=== PATIENT | female | born 1940 | race Caucasian/White ===

== ENCOUNTER 2022-07-30 03:19 | Emergency (ER) | payer OTHER ==
[~2022-07-30] VITALS: Ht 147.3 cm; Wt 68.0 kg
[~2022-07-30 03:19] MED LIST: BLOOD PRESSURE PILL; INHALER; THYROID PILL; WATER PILL
[2022-07-30 03:24] VITALS: BP_SYST 157
--- NOTE | 2022-07-30 03:29 | NUR ---
PT FROM HOME BIBA WITH C/O ABD X 1 MONTH. LOCATED IN CENTER OF ABD NON-RADIATING. REPORTS DARK BROWN THROW UP, N/V AND WEAKNESS. LBM: LAST NIGHT REPORTS NO BLOOD IN THE EMISIS.
[2022-07-30] MEDS ORDERED: NACL 0.9% 1,000 ML IV ONE (03:30)
--- NOTE | 2022-07-30 03:50 | NUR ---
Patient to ER bed 08 to gown for evaluation. Side rails up. Report given to Kalyn DOYLE.
[2022-07-30 04:27] LABS: BASOPHILS # (AUTO) 0.1 K/uL (0.0-0.2); EOSINOPHILS # (AUTO) 0.3 K/uL (0.0-0.4); EOSINOPHILS % (AUTO) 2.1 % (0.0-4.0); HEMATOCRIT 38.5 % (36-48); HEMOGLOBIN 12.9 g/dL (12.0-16.0); LYMPHOCYTES # (AUTO) 1.3 K/uL (1.0-5.5); LYMPHOCYTES % (AUTO) 9.3 % (20.5-51.5); MEAN CORPUSCULAR HEMOGLOBIN 29 pg (27-31); MEAN CORPUSCULAR HGB CONC 33 % (32-36); MEAN CORPUSCULAR VOLUME 87 fL (79.0-98.0); MONOCYTES # (AUTO) 0.8 K/uL (0.0-1.0); MONOCYTES % (AUTO) 5.5 % (1.7-9.3); NEUTROPHILS # (AUTO) 11.5 K/uL (1.8-7.7); NEUTROPHILS % (AUTO) 82.1 % (40.0-70.0); PLATELET COUNT (AUTO) 263 K/uL (130-430); RED BLOOD CELL COUNT(AUTO) 4.42 MIL/uL (4.2-6.2); RED CELL DISTRIBUTION WIDTH 14.3 % (9.0-15.0)
[2022-07-30 04:36] LABS: ANION GAP 9 (5-15); CALCIUM 9.6 mg/dL (8.4-11.0); CHLORIDE 98 mmol/L (98-107); CREATININE 0.85 mg/dL (0.55-1.30); GLUCOSE 181 mg/dL (70-99); POTASSIUM 4.1 mmol/L (3.5-5.1); SODIUM SERUM 135 mmol/L (136-145); UREA NITROGEN, BLOOD 19 mg/dL (8-21)
[2022-07-30 04:42] LABS: ALANINE AMINOTRANSFERASE 22 U/L (12-78); ALBUMIN 3.1 g/dL (3.4-4.8); ASPARTATE AMINOTRANSFERASE 16 U/L (10-37); LIPASE 165 U/L (73-393)
[2022-07-30] MEDS ORDERED: MORPHINE 4 MG INJ. 4 MG/ML VIAL IVP ONE (05:00)
[2022-07-30] MEDS ORDERED: PROCHLORPERAZINE EDISYLATE 10 MG/2 ML VIAL IVP ONE (05:00)
--- NOTE | 2022-07-30 07:04 | NUR ---
PATIENT CAME IN EARLIER TODAY WITH A COMPLAIN OF ABDOMINAL PAIN, REFUSED TO TAKE ORDERED MEDICATION. V/S STABLE.ENDORSEDS
[2022-07-30] MEDS ORDERED: ONDANSETRON 4 MG ODT TAB PO ONE (07:15)
[2022-07-30] MEDS ORDERED: ACETAMINOPHEN 325 MG TABLET PO ONE (07:15)
[2022-07-30] MEDS ORDERED: VANCOMYCIN HCL 1,000 MG in NS 250 ML IV ONE (07:15)
--- NOTE | 2022-07-30 07:30 | NUR ---
RECEIVED PT FROM YANIRA GALARZA. PT IS HERE FOR C/O AB PAIN WHICH IS RESOLVED AT THIS TIME. DR. PHELPS AT BEDSIDE INFORMING PT OF POC. PT IS AAOX4, RESP E/U. ON R/A. NO COUGH OR SOB. ABDOMEN SOFT, NONTENDER, NONDISTENDED. DENIES N/V AT THIS TIME. PT EDUCATED TO REMAIN NPO AT THIS TIME. SKIN CDI, WARM, INTACT. IV CATH TO LAC 20G, INTACT, SITE WLN. SIDERAILS UP X2.
[2022-07-30] MEDS ORDERED: CIPR500T5 PO (09:00)
[2022-07-30] MEDS ORDERED: METR-154 PO (09:00)
[2022-07-30 09:14] LABS: BILIRUBIN,URINE NEGATIVE (NEGATIVE); BLOOD, URINE NEGATIVE (NEGATIVE); CLARITY/URINE CLEAR (CLEAR); COLOR,URINE YELLOW (YELLOW); GLUCOSE,URINE NEGATIVE (NEGATIVE); KETONES,URINE NEGATIVE (NEGATIVE); LEUKOCYTE ESTERASE ,URINE TRACE (NEGATIVE); NITRITE, URINE NEGATIVE (NEGATIVE); PH,URINE 5.5 (5.0-8.0); PROTEIN URINE NEGATIVE (NEGATIVE); UROBILINOGEN,URINE 0.2 (0.2-1.0)
[2022-07-30] MEDS ORDERED: VANCOMYCIN HCL 1000 MG/VIAL IV ONE (09:22)
--- NOTE | 2022-07-30 09:25 | NUR ---
levaquin ivpb initiated to be completed at 1130, vanco ivpb initiated to be completed at 1130.
[2022-07-30 10:57] VITALS: BP_SYST 142
--- NOTE | 2022-07-30 11:00 | NUR ---
Patient given written and verbal discharge instructions and verbalizes understanding. ER MD discussed with patient the results and treatment provided. Patient in stable condition. ID arm band removed. IV catheter removed intact and dressing applied, no active bleeding. Rx of ciprofloxacin, metronaidazole given. Patient educated on pain management and to follow up with PMD. Pain Scale 0/10. Opportunity for questions provided and answered. Medication side effect fact sheet provided.
[2022-07-30 11:28] LABS: BACTERIA,URINE FEW /HPF (None Seen); RBC,URINE 0-3 /HPF (0-3); WBC,URINE 0-3 /HPF (0-3)
== END 2022-07-30 11:00 | disposition home or self-care (01) ==
LOC: SED 03:19
DX: R10.13 Epigastric pain (principal); R11.2 Nausea with vomiting, unspecified; R42 Dizziness and giddiness; I10 Essential (primary) hypertension; Z88.0 Allergy status to penicillin; Z79.899 Other long term (current) drug therapy; Z20.822 Contact with and (suspected) exposure to COVID-19
CPT/HCPCS: 99285; 74176; 96365; 96366; 96375; 87426; 80053; 81000; 83690; 85025; 84484; 36415; 93005; 76376; 96368; J1956; J0780; J3370; J7050

== ENCOUNTER 2022-12-08 09:45 | Emergency (ER) | payer OTHER ==
[~2022-12-08] VITALS: Ht 147.3 cm; Wt 70.3 kg
[~2022-12-08 09:45] MED LIST changes: +CIPR500T5 PO; +METR-154 PO
[2022-12-08 09:52] VITALS: BP_SYST 160
[2022-12-08] MEDS ORDERED: ONDANSETRON 4 MG ODT TAB PO ONE (10:00)
[2022-12-08 10:14] LABS: BILIRUBIN,URINE NEGATIVE (NEGATIVE); CLARITY/URINE CLEAR (CLEAR); COLOR,URINE YELLOW (YELLOW); GLUCOSE,URINE NEGATIVE (NEGATIVE); KETONES,URINE NEGATIVE (NEGATIVE); LEUKOCYTE ESTERASE ,URINE 1+ (NEGATIVE); NITRITE, URINE NEGATIVE (NEGATIVE); PH,URINE 6.5 (5.0-8.0); PROTEIN URINE NEGATIVE (NEGATIVE)
[2022-12-08 10:18] LABS: BLOOD, URINE TRACE (NEGATIVE)
[2022-12-08 10:29] LABS: BASOPHILS # (AUTO) 0.1 K/uL (0.0-0.2); BASOPHILS % (AUTO) 0.6 % (0.0-2.0); EOSINOPHILS # (AUTO) 0.2 K/uL (0.0-0.4); EOSINOPHILS % (AUTO) 2.5 % (0.0-4.0); HEMATOCRIT 37.3 % (36-48); HEMOGLOBIN 12.7 g/dL (12.0-16.0); LYMPHOCYTES # (AUTO) 2.7 K/uL (1.0-5.5); LYMPHOCYTES % (AUTO) 29.1 % (20.5-51.5); MEAN CORPUSCULAR HEMOGLOBIN 31 pg (27-31); MEAN CORPUSCULAR HGB CONC 34 % (32-36); MEAN CORPUSCULAR VOLUME 91 fL (79.0-98.0); MONOCYTES # (AUTO) 0.7 K/uL (0.0-1.0); MONOCYTES % (AUTO) 7.1 % (1.7-9.3); NEUTROPHILS # (AUTO) 5.6 K/uL (1.8-7.7); NEUTROPHILS % (AUTO) 60.7 % (40.0-70.0); PLATELET COUNT (AUTO) 281 K/uL (130-430); RED CELL DISTRIBUTION WIDTH 15.5 % (9.0-15.0); WHITE BLOOD COUNT (AUTO) 9.2 K/uL (4.8-10.8)
[2022-12-08 10:36] LABS: ANION GAP 8 (5-15); CALCIUM 8.7 mg/dL (8.4-11.0); CHLORIDE 97 mmol/L (98-107); CREATININE 0.75 mg/dL (0.55-1.30); GLUCOSE 240 mg/dL (70-99); UREA NITROGEN, BLOOD 13 mg/dL (8-21)
[2022-12-08 10:39] LABS: BACTERIA,URINE None Seen /HPF (None Seen); MUCUS,URINE None Seen /LPF (None Seen); RBC,URINE 0-3 /HPF (0-3)
[2022-12-08 10:41] LABS: ALANINE AMINOTRANSFERASE 16 U/L (12-78); ALBUMIN 3.4 g/dL (3.4-4.8); AMYLASE 66 U/L (0-100); ASPARTATE AMINOTRANSFERASE 13 U/L (10-37); C-REACTIVE PROTEIN QUANT 0.8 mg/dL (0-0.5); LACTATE DEHYDROGENASE 142 U/L (81-234); LIPASE 92 U/L (73-393); TOTAL BILIRUBIN 0.7 mg/dL (0.0-1.0)
[2022-12-08 10:47] LABS: ACETONE, SERUM NEGATIVE (NEGATIVE)
[2022-12-08] MEDS ORDERED: OMEP20CA15 PO (12:08)
[2022-12-08] MEDS ORDERED: HYDR-3917 PO (12:08)
[2022-12-08] MEDS ORDERED: HYDROcodone/ACETAMIN 10-325 MG TAB PO ONE (12:30)
[2022-12-08 12:31] VITALS: BP_SYST 160
== END 2022-12-08 12:36 | disposition home or self-care (01) ==
LOC: SED 09:45
DX: R10.10 Upper abdominal pain, unspecified (principal); R11.2 Nausea with vomiting, unspecified; I10 Essential (primary) hypertension; Z88.0 Allergy status to penicillin; Z79.899 Other long term (current) drug therapy
CPT/HCPCS: 99284; 74176; 80053; 81000; 82009; 82150; 83615; 83690; 85025; 86140; 87086; 84484; 36415; 76376; 83605; Q0162

== ENCOUNTER 2022-12-20 19:02 | Emergency (ER) | payer OTHER ==
[~2022-12-20] VITALS: Ht 147.3 cm; Wt 68.0 kg
[~2022-12-20 19:02] MED LIST changes: +HYDR-3917 PO; +OMEP20CA15 PO
--- NOTE | 2022-12-20 19:17 | NUR ---
Patient to ER bed 7 to gown for evaluation. Side rails up.
--- NOTE | 2022-12-20 19:20 | NUR ---
Pt walked in c/o mid abdominal pain x today, +N/V x2. Pt states pain feels like the last time she had diverticulitis. Denies CP, SOB, denies sick contacts. PMH HTN, HLD, DM.
[2022-12-20 19:23] VITALS: BP_SYST 172
--- NOTE | 2022-12-20 19:25 | NUR ---
Dr. Birch at bedside for MSE
--- NOTE | 2022-12-20 19:32 | NUR ---
lab at bedside
--- NOTE | 2022-12-20 19:37 | NUR ---
pt c/o nausea, Dr. Eyal JACQUES for zofran
--- NOTE | 2022-12-20 19:40 | NUR ---
pt [facility] to CT
[2022-12-20] MEDS ORDERED: ONDANSETRON 4 MG ODT TAB PO ONE (19:45)
--- NOTE | 2022-12-20 19:49 | NUR ---
pt back from CT
[2022-12-20 19:53] LABS: BASOPHILS % (AUTO) 0.6 % (0.0-2.0); EOSINOPHILS # (AUTO) 0.1 K/uL (0.0-0.4); EOSINOPHILS % (AUTO) 1.2 % (0.0-4.0); HEMATOCRIT 34.3 % (36-48); HEMOGLOBIN 11.7 g/dL (12.0-16.0); LYMPHOCYTES # (AUTO) 1.7 K/uL (1.0-5.5); MEAN CORPUSCULAR HEMOGLOBIN 31 pg (27-31); MEAN CORPUSCULAR HGB CONC 34 % (32-36); MEAN CORPUSCULAR VOLUME 91 fL (79.0-98.0); MONOCYTES # (AUTO) 0.9 K/uL (0.0-1.0); MONOCYTES % (AUTO) 11.7 % (1.7-9.3); NEUTROPHILS # (AUTO) 5.2 K/uL (1.8-7.7); NEUTROPHILS % (AUTO) 65.5 % (40.0-70.0); PLATELET COUNT (AUTO) 240 K/uL (130-430); RED BLOOD CELL COUNT(AUTO) 3.78 MIL/uL (4.2-6.2); RED CELL DISTRIBUTION WIDTH 14.5 % (9.0-15.0)
[2022-12-20 20:13] LABS: ANION GAP 10 (5-15); CALCIUM 8.6 mg/dL (8.4-11.0); CHLORIDE 96 mmol/L (98-107); CREATININE 0.69 mg/dL (0.55-1.30); GLUCOSE 235 mg/dL (70-99); UREA NITROGEN, BLOOD 11 mg/dL (8-21)
[2022-12-20 20:15] LABS: ALANINE AMINOTRANSFERASE 19 U/L (12-78); AMYLASE 63 U/L (0-100); ASPARTATE AMINOTRANSFERASE 15 U/L (10-37); C-REACTIVE PROTEIN QUANT 1.8 mg/dL (0-0.5); LACTATE DEHYDROGENASE 131 U/L (81-234); LIPASE 69 U/L (73-393); TOTAL BILIRUBIN 0.8 mg/dL (0.0-1.0)
[2022-12-20 20:26] LABS: ACETONE, SERUM NEGATIVE (NEGATIVE)
[2022-12-20] MEDS ORDERED: KETOROLAC TROMETHAMINE 30 MG VIAL IM ONE (20:45)
[2022-12-20] MEDS ORDERED: IBUP-1969 PO (21:32)
[2022-12-20] MEDS ORDERED: HYDR-3917 PO (21:32)
[2022-12-20 22:05] VITALS: BP_SYST 172
[2022-12-20] MEDS ORDERED: KETO10TA2 PO (22:05)
--- NOTE | 2022-12-20 22:05 | NUR ---
Patient given written and verbal discharge instructions and verbalizes understanding. ER MD discussed with patient the results and treatment provided. Patient in stable condition. ID arm band removed. Rx of NORCO, MOTRIN given. Patient educated on pain management and to follow up with PMD. Pain Scale 0/10. Opportunity for questions provided and answered. Medication side effect fact sheet provided.
[2022-12-20 22:25] LABS: BILIRUBIN,URINE NEGATIVE (NEGATIVE); CLARITY/URINE CLEAR (CLEAR); COLOR,URINE YELLOW (YELLOW); GLUCOSE,URINE TRACE (NEGATIVE); KETONES,URINE NEGATIVE (NEGATIVE); LEUKOCYTE ESTERASE ,URINE TRACE (NEGATIVE); NITRITE, URINE NEGATIVE (NEGATIVE); PROTEIN URINE NEGATIVE (NEGATIVE); UROBILINOGEN,URINE 0.2 (0.2-1.0)
[2022-12-20 22:45] LABS: BLOOD, URINE TRACE (NEGATIVE)
[2022-12-21 00:09] LABS: BACTERIA,URINE FEW /HPF (None Seen); MUCUS,URINE None Seen /LPF (None Seen); RBC,URINE 0-3 /HPF (0-3)
== END 2022-12-20 22:05 | disposition home or self-care (01) ==
LOC: SED 19:02
DX: R10.33 Periumbilical pain (principal); R11.2 Nausea with vomiting, unspecified; R19.7 Diarrhea, unspecified; I10 Essential (primary) hypertension; Z88.0 Allergy status to penicillin; Z79.899 Other long term (current) drug therapy
CPT/HCPCS: 99285; 74176; 80053; 81000; 82009; 82150; 83615; 83690; 85025; 86140; 84484; 36415; 76376; 96372; 83605; Q0162; J1885

== ENCOUNTER 2024-04-05 02:19 | Inpatient (IN) | payer OTHER ==
[~2024-04-05] VITALS: Ht 152.4 cm; Wt 57.9 kg
[~2024-04-05 02:19] MED LIST changes: +IBUP-1969 PO; +KETO10TA2 PO
[2024-04-05 02:25] VITALS: BP_SYST 149; PULSE 75; RESP 19; TEMP 97.9; O2SAT 96
[2024-04-05] MEDS: ONDANSETRON HCL 4 MG/2 ML VIAL IVP ONE ×3 (02:53→15:52)
[2024-04-05] MEDS: MORPHINE 4 MG INJ. 4 MG/ML VIAL IVP ONE (02:58)
[2024-04-05] MEDS: NACL 0.9% 1,000 ML IV ONE (02:58)
[2024-04-05 03:06] LABS: BASOPHILS # (AUTO) 0.1 K/uL (0.0-0.2); BASOPHILS % (AUTO) 0.5 % (0.0-2.0); EOSINOPHILS # (AUTO) 0.5 K/uL (0.0-0.4); EOSINOPHILS % (AUTO) 3.8 % (0.0-4.0); HEMATOCRIT 39.2 % (36-48); HEMOGLOBIN 13.2 g/dL (12.0-16.0); LYMPHOCYTES # (AUTO) 5.2 K/uL (1.0-5.5); LYMPHOCYTES % (AUTO) 38.5 % (20.5-51.5); MEAN CORPUSCULAR HEMOGLOBIN 30 pg (27-31); MEAN CORPUSCULAR HGB CONC 34 % (32-36); MEAN CORPUSCULAR VOLUME 87 fL (79.0-98.0); MONOCYTES # (AUTO) 0.9 K/uL (0.0-1.0); MONOCYTES % (AUTO) 6.9 % (1.7-9.3); NEUTROPHILS # (AUTO) 6.7 K/uL (1.8-7.7); NEUTROPHILS % (AUTO) 50.3 % (40.0-70.0); PLATELET COUNT (AUTO) 279 K/uL (130-430); RED CELL DISTRIBUTION WIDTH 14.4 % (9.0-15.0); WHITE BLOOD COUNT (AUTO) 13.4 K/uL (4.8-10.8)
[2024-04-05 03:25] LABS: ALANINE AMINOTRANSFERASE 20 U/L (12-78); ALBUMIN 3.3 g/dL (3.4-4.8); ANION GAP 17 (5-15); ASPARTATE AMINOTRANSFERASE 14 U/L (10-37); CALCIUM 9.2 mg/dL (8.4-11.0); CARBON DIOXIDE 22 mmol/L (23-29); CHLORIDE 101 mmol/L (98-107); CREATININE 0.74 mg/dL (0.55-1.30); GLUCOSE 186 mg/dL (74-106); LIPASE 47 U/L (16-77); POTASSIUM 3.3 mmol/L (3.5-5.1); SODIUM SERUM 140 mmol/L (136-145); TOTAL BILIRUBIN 0.9 mg/dL (0.0-1.0); UREA NITROGEN, BLOOD 16 mg/dL (8-21)
[2024-04-05] MEDS ORDERED: iohexoL 350 mgI/mL, 100 ML INFUS..BTL IV ONE (03:37)
[2024-04-05 04:52] LABS: BILIRUBIN,URINE NEGATIVE (NEGATIVE); BLOOD, URINE NEGATIVE (NEGATIVE); COLOR,URINE YELLOW (YELLOW); GLUCOSE,URINE NEGATIVE (NEGATIVE); KETONES,URINE NEGATIVE (NEGATIVE); LEUKOCYTE ESTERASE ,URINE TRACE (NEGATIVE); NITRITE, URINE NEGATIVE (NEGATIVE); PROTEIN URINE NEGATIVE (NEGATIVE); UROBILINOGEN,URINE 0.2 (0.2-1.0)
[2024-04-05 04:58] LABS: CLARITY/URINE HAZY (CLEAR)
[2024-04-05 04:59] LABS: BACTERIA,URINE RARE /HPF (None Seen); RBC,URINE 0-3 /HPF (0-3)
[2024-04-05] MEDS ORDERED: ONDANSETRON HCL 4 MG/2 ML VIAL ONE ×2 (05:09→15:47)
[2024-04-05] MEDS: KETOROLAC TROMETHAMINE 30 MG VIAL IVP ONE (05:53)
[2024-04-05] MEDS: MORPHINE 2 MG/ML INJ. SYRINGE IVP ONE (07:07)
[2024-04-05] MEDS ORDERED: LEVO100T9 PO (08:35)
[2024-04-05] MEDS ORDERED: AMLO10TA88 PO (08:35)
[2024-04-05] MEDS ORDERED: VALS320T16 PO (08:35)
[2024-04-05] MEDS ORDERED: ATOR40TA68 PO (08:35)
[2024-04-05] MEDS ORDERED: ASPI-1393 (08:35)
[2024-04-05] MEDS ORDERED: ASA81 PO (08:35)
[2024-04-05] MEDS ORDERED: METO-304 PO (09:19)
[2024-04-05] MEDS ORDERED: VALSARTAN Non-Formulary 160 MG TABLET PO SCH (10:00)
[2024-04-05] MEDS: LOSARTAN POTASSIUM 50 MG TABLET (COZAAR) PO ONE (10:27)
[2024-04-05] MEDS ORDERED: METOPROLOL SUCCINATE 25 MG TAB.SR.24H (TOPROL XL) PO ONE (10:45)
[2024-04-05] MEDS: amLODIPine BESYLATE 10 MG TABLET PO ONE (11:08)
[2024-04-05] MEDS ORDERED: NALOXONE HCL 0.4 MG/ML AMP (NARCAN) IVP PRN (12:15)
[2024-04-05] MEDS ORDERED: METOPROLOL SUCCINATE 25 MG TAB.SR.24H (TOPROL XL) PO SCH (12:15)
[2024-04-05] MEDS ORDERED: OMEPRAZOLE Non-Formulary 20 MG CAPSULE.DR PO SCH (12:15)
[2024-04-05] MEDS ORDERED: amLODIPine BESYLATE 10 MG TABLET PO ONE (13:00)
[2024-04-05] MEDS ORDERED: GASTROGRAFIN 120 ML ONE (13:05)
[2024-04-05] MEDS: PANTOPRAZOLE SODIUM 40 MG TAB PO ONE (14:05)
[2024-04-05] MEDS ORDERED: DEXTROSE 50% JECT 50 ML DISP.SYRIN IVP PRN (14:45)
[2024-04-05] MEDS: POTASSIUM CHLORIDE 20 MEQ TABLET.ER PO ONE (15:03)
[2024-04-05] MEDS: HYDROcodone/ACETAMIN 5-325 MG TAB (NORCO/ VICODIN) PO PRN (15:08)
[2024-04-05] MEDS: MORPHINE 4 MG INJ. 4 MG/ML VIAL IVP PRN (15:52)
[2024-04-05] MEDS ORDERED: INSULIN REGULAR, HUMAN 10 UNITS/0.1 ML, 3 ML VIAL ONE (17:29)
[2024-04-05] MEDS: INSULIN REGULAR, HUMAN 100 UNITS/ML, 3 ML VIAL (humuLIN R) SUBCUT PRN (17:33)
[2024-04-05 19:57] VITALS: BP_SYST 166; PULSE 89; RESP 18; TEMP 99.4; O2SAT 94
[2024-04-05 20:00] VITALS: BP_SYST 166; PULSE 89; RESP 18; TEMP 99.4; O2SAT 94
[2024-04-05] MEDS: METOPROLOL SUCCINATE 25 MG TAB.SR.24H (TOPROL XL) PO SCH (21:18)
[2024-04-06 00:49] VITALS: BP_SYST 157; PULSE 94; RESP 16; TEMP 99.7; O2SAT 92
[2024-04-06 06:46] LABS: BASOPHILS % (AUTO) 0.1 % (0.0-2.0); HEMOGLOBIN 13.2 g/dL (12.0-16.0); LYMPHOCYTES # (AUTO) 2.1 K/uL (1.0-5.5); LYMPHOCYTES % (AUTO) 8.1 % (20.5-51.5); MEAN CORPUSCULAR HEMOGLOBIN 30 pg (27-31); MEAN CORPUSCULAR HGB CONC 35 % (32-36); MEAN CORPUSCULAR VOLUME 87 fL (79.0-98.0); MONOCYTES # (AUTO) 1.5 K/uL (0.0-1.0); MONOCYTES % (AUTO) 5.8 % (1.7-9.3); NEUTROPHILS # (AUTO) 22.8 K/uL (1.8-7.7); PLATELET COUNT (AUTO) 262 K/uL (130-430); RED BLOOD CELL COUNT(AUTO) 4.35 MIL/uL (4.2-6.2); RED CELL DISTRIBUTION WIDTH 14.4 % (9.0-15.0); WHITE BLOOD COUNT (AUTO) 26.5 K/uL (4.8-10.8)
[2024-04-06 07:29] LABS: ALANINE AMINOTRANSFERASE 21 U/L (12-78); ALBUMIN 2.9 g/dL (3.4-4.8); ANION GAP 13 (5-15); CALCIUM 8.8 mg/dL (8.4-11.0); CARBON DIOXIDE 25 mmol/L (23-29); CHLORIDE 99 mmol/L (98-107); CREATININE 0.77 mg/dL (0.55-1.30); GLUCOSE 176 mg/dL (74-106); POTASSIUM 3.8 mmol/L (3.5-5.1); SODIUM SERUM 137 mmol/L (136-145); TOTAL BILIRUBIN 1.7 mg/dL (0.0-1.0); TOTAL PROTEIN, SERUM 7.8 g/dL (6.4-8.3); UREA NITROGEN, BLOOD 19 mg/dL (8-21)
[2024-04-06 07:52] LABS: ASPARTATE AMINOTRANSFERASE 23 U/L (10-37)
[2024-04-06 08:00] VITALS: BP_SYST 156; PULSE 85; RESP 16; TEMP 97; O2SAT 96
[2024-04-06] MEDS: PIPERACILLIN/TAZO 3.375 GM in NS 50 ML IV ONE (09:45)
[2024-04-06] MEDS: ONDANSETRON HCL 4 MG/2 ML VIAL IVP PRN (10:29)
[2024-04-06 11:03] VITALS: BP_SYST 162; PULSE 90; RESP 16; TEMP 98.5; O2SAT 97
[2024-04-06] MEDS: LOSARTAN POTASSIUM 50 MG TABLET (COZAAR) PO SCH (11:47)
[2024-04-06] MEDS: amLODIPine BESYLATE 10 MG TABLET PO SCH (11:48)
[2024-04-06] MEDS: ASPIRIN 81 MG TAB.CHEW PO SCH (13:15)
[2024-04-06] MEDS: ATORVASTATIN 20 MG TABLET PO SCH (13:15)
[2024-04-06] MEDS: PANTOPRAZOLE SODIUM 40 MG TAB PO SCH (13:16)
[2024-04-06] MEDS: LEVOTHYROXINE SODIUM 0.1 MG TABLET PO SCH (13:17)
[2024-04-06] MEDS ORDERED: MORPHINE 2 MG/ML INJ. SYRINGE IVP PRN (13:45)
[2024-04-06] MEDS ORDERED: NALOXONE HCL 0.4 MG/ML AMP (NARCAN) IVP PRN ×2 (13:45→17:30)
[2024-04-06 15:17] VITALS: BP_SYST 149; PULSE 94; RESP 16; TEMP 99.4; O2SAT 94
[2024-04-06 20:00] VITALS: BP_SYST 115; PULSE 83; RESP 18; TEMP 100; O2SAT 95
[2024-04-06] MEDS: metroNIDAZOLE 500 mg/NS 100 ML IV SCH (21:14)
[2024-04-06] MEDS: D5LR 1,000 ML IV SCH (21:14)
[2024-04-06] MEDS: MORPHINE 2 MG/ML INJ. SYRINGE IVP PRN (21:50)
[2024-04-07] VITALS: BP_SYST 135; PULSE 113; RESP 18; TEMP 99.4; O2SAT 93
[2024-04-07] MEDS: BISACODYL 10 MG/SUPPOSITORY RC ONE ×2 (02:30→15:07)
[2024-04-07 05:53] LABS: BASOPHILS % (AUTO) 0.1 % (0.0-2.0); HEMATOCRIT 38.8 % (36-48); HEMOGLOBIN 13.1 g/dL (12.0-16.0); LYMPHOCYTES # (AUTO) 1.7 K/uL (1.0-5.5); LYMPHOCYTES % (AUTO) 7.3 % (20.5-51.5); MEAN CORPUSCULAR HEMOGLOBIN 30 pg (27-31); MEAN CORPUSCULAR HGB CONC 34 % (32-36); MEAN CORPUSCULAR VOLUME 88 fL (79.0-98.0); MONOCYTES # (AUTO) 1.8 K/uL (0.0-1.0); MONOCYTES % (AUTO) 7.5 % (1.7-9.3); NEUTROPHILS # (AUTO) 20.2 K/uL (1.8-7.7); NEUTROPHILS % (AUTO) 85.1 % (40.0-70.0); PLATELET COUNT (AUTO) 228 K/uL (130-430); RED BLOOD CELL COUNT(AUTO) 4.42 MIL/uL (4.2-6.2); RED CELL DISTRIBUTION WIDTH 14.7 % (9.0-15.0); WHITE BLOOD COUNT (AUTO) 23.7 K/uL (4.8-10.8)
[2024-04-07 06:11] LABS: INR 1.2 (0.8-1.2); PROTHROMBIN TIME 12.5 SECS (9.5-12.5)
[2024-04-07 06:25] LABS: ALBUMIN 2.2 g/dL (3.4-4.8); ANION GAP 10 (5-15); ASPARTATE AMINOTRANSFERASE 13 U/L (10-37); CARBON DIOXIDE 27 mmol/L (23-29); CHLORIDE 98 mmol/L (98-107); CREATININE 0.86 mg/dL (0.55-1.30); GLUCOSE 189 mg/dL (74-106); PHOSPHORUS 2.8 mg/dL (2.7-4.5); POTASSIUM 3.6 mmol/L (3.5-5.1); SODIUM SERUM 135 mmol/L (136-145); TOTAL BILIRUBIN 1.5 mg/dL (0.0-1.0); TOTAL PROTEIN, SERUM 7.2 g/dL (6.4-8.3); UREA NITROGEN, BLOOD 27 mg/dL (8-21)
[2024-04-07 07:36] LABS: ALANINE AMINOTRANSFERASE 17 U/L (12-78)
[2024-04-07 08:00] VITALS: BP_SYST 105; PULSE 82; RESP 18; TEMP 98.4; O2SAT 93
[2024-04-07 12:04] VITALS: BP_SYST 125; PULSE 103; RESP 17; TEMP 99; O2SAT 99
[2024-04-07] MEDS ORDERED: BISACODYL 10 MG/SUPPOSITORY RC PRN (14:30)
[2024-04-07] MEDS: PANTOPRAZOLE SODIUM 40 MG/VIAL (PROTONIX) IVP ONE (15:08)
[2024-04-07 16:48] VITALS: BP_SYST 115; PULSE 89; RESP 18; TEMP 98.6; O2SAT 95
[2024-04-07 20:00] VITALS: BP_SYST 129; PULSE 100; RESP 18; TEMP 98.3; O2SAT 94
[2024-04-07] MEDS ORDERED: LEVOFLOXACIN 250 MG/D5W 50 ML IV SCH (21:00)
[2024-04-07] MEDS: ENOXAPARIN SODIUM 30 MG/0.3 ML SYRINGE SUBCUT SCH (21:34)
[2024-04-07] MEDS: PANTOPRAZOLE SODIUM 40 MG/VIAL (PROTONIX) IVP SCH (21:34)
[2024-04-08] VITALS: BP_SYST 149; PULSE 92; RESP 18; TEMP 98.4; O2SAT 94
[2024-04-08 07:08] LABS: BASOPHILS # (AUTO) 0.1 K/uL (0.0-0.2); BASOPHILS % (AUTO) 0.3 % (0.0-2.0); EOSINOPHILS % (AUTO) 0.1 % (0.0-4.0); HEMATOCRIT 35.8 % (36-48); HEMOGLOBIN 12.1 g/dL (12.0-16.0); LYMPHOCYTES % (AUTO) 9.4 % (20.5-51.5); MEAN CORPUSCULAR HEMOGLOBIN 30 pg (27-31); MEAN CORPUSCULAR HGB CONC 34 % (32-36); MEAN CORPUSCULAR VOLUME 88 fL (79.0-98.0); MONOCYTES # (AUTO) 1.4 K/uL (0.0-1.0); MONOCYTES % (AUTO) 6.4 % (1.7-9.3); NEUTROPHILS # (AUTO) 18.1 K/uL (1.8-7.7); NEUTROPHILS % (AUTO) 83.8 % (40.0-70.0); PLATELET COUNT (AUTO) 218 K/uL (130-430); RED BLOOD CELL COUNT(AUTO) 4.08 MIL/uL (4.2-6.2); RED CELL DISTRIBUTION WIDTH 14.6 % (9.0-15.0); WHITE BLOOD COUNT (AUTO) 21.5 K/uL (4.8-10.8)
[2024-04-08 07:33] LABS: ALANINE AMINOTRANSFERASE 18 U/L (12-78); ALBUMIN 1.9 g/dL (3.4-4.8); ANION GAP 8 (5-15); CALCIUM 7.7 mg/dL (8.4-11.0); CARBON DIOXIDE 28 mmol/L (23-29); CHLORIDE 102 mmol/L (98-107); CREATININE 0.63 mg/dL (0.55-1.30); GLUCOSE 179 mg/dL (74-106); PHOSPHORUS 2.3 mg/dL (2.7-4.5); POTASSIUM 3.3 mmol/L (3.5-5.1); SODIUM SERUM 138 mmol/L (136-145); TOTAL PROTEIN, SERUM 5.6 g/dL (6.4-8.3); UREA NITROGEN, BLOOD 19 mg/dL (8-21)
[2024-04-08 07:49] LABS: ASPARTATE AMINOTRANSFERASE 23 U/L (10-37)
[2024-04-08 08:15] VITALS: BP_SYST 121; PULSE 86; RESP 18; TEMP 98.1; O2SAT 96
[2024-04-08 12:00] VITALS: BP_SYST 128; PULSE 84; RESP 19; TEMP 98.4; O2SAT 94
[2024-04-08] MEDS: POTASSIUM CHLORIDE 20 MEQ TABLET.ER PO ONE (15:58)
[2024-04-08 16:00] VITALS: BP_SYST 145; BP_SYST 162; PULSE 90; RESP 17; TEMP 98.6; O2SAT 95
[2024-04-09 00:43] VITALS: BP_SYST 152; PULSE 80; RESP 18; TEMP 98.2; O2SAT 95
[2024-04-09 06:53] LABS: BASOPHILS # (AUTO) 0.1 K/uL (0.0-0.2); BASOPHILS % (AUTO) 0.4 % (0.0-2.0); HEMATOCRIT 34.4 % (36-48); HEMOGLOBIN 11.6 g/dL (12.0-16.0); LYMPHOCYTES # (AUTO) 2.4 K/uL (1.0-5.5); LYMPHOCYTES % (AUTO) 11.1 % (20.5-51.5); MEAN CORPUSCULAR HEMOGLOBIN 30 pg (27-31); MEAN CORPUSCULAR HGB CONC 34 % (32-36); MEAN CORPUSCULAR VOLUME 87 fL (79.0-98.0); MONOCYTES # (AUTO) 1.4 K/uL (0.0-1.0); MONOCYTES % (AUTO) 6.6 % (1.7-9.3); NEUTROPHILS # (AUTO) 17.5 K/uL (1.8-7.7); NEUTROPHILS % (AUTO) 81.9 % (40.0-70.0); PLATELET COUNT (AUTO) 254 K/uL (130-430); RED BLOOD CELL COUNT(AUTO) 3.94 MIL/uL (4.2-6.2); RED CELL DISTRIBUTION WIDTH 14.7 % (9.0-15.0); WHITE BLOOD COUNT (AUTO) 21.4 K/uL (4.8-10.8)
[2024-04-09 07:07] LABS: ALANINE AMINOTRANSFERASE 16 U/L (12-78); ALBUMIN 1.6 g/dL (3.4-4.8); ANION GAP 9 (5-15); ASPARTATE AMINOTRANSFERASE 22 U/L (10-37); CALCIUM 8.2 mg/dL (8.4-11.0); CARBON DIOXIDE 27 mmol/L (23-29); CHLORIDE 102 mmol/L (98-107); CREATININE 0.55 mg/dL (0.55-1.30); GLUCOSE 153 mg/dL (74-106); POTASSIUM 3.3 mmol/L (3.5-5.1); SODIUM SERUM 138 mmol/L (136-145); TOTAL BILIRUBIN 0.9 mg/dL (0.0-1.0); TOTAL PROTEIN, SERUM 5.9 g/dL (6.4-8.3); UREA NITROGEN, BLOOD 11 mg/dL (8-21)
[2024-04-09 08:33] VITALS: BP_SYST 148; PULSE 78; RESP 18; TEMP 98.2
[2024-04-09 09:30] VITALS: O2SAT 94
[2024-04-09] MEDS: DOCUSATE SODIUM 100 MG CAPSULE PO SCH (10:03)
[2024-04-09 10:04] LABS: TOTAL IRON BIND. CAPACITY 322 ug/dL (250-450)
[2024-04-09] MEDS: POTASSIUM CHLORIDE 20 MEQ TABLET.ER PO SCH (10:04)
[2024-04-09] MEDS: NAPH,MB-DB/K PH,MBDB 250 MG TAB PO ONE (10:19)
[2024-04-09] MEDS: CHOLECALCIFEROL (VITAMIN D3) 5,000 UNIT TABLET PO ONE (10:19)
[2024-04-09 11:14] VITALS: BP_SYST 147; PULSE 73; RESP 16; TEMP 98.3; O2SAT 97
[2024-04-09] MEDS: NAPH,MB-DB/K PH,MBDB 250 MG TAB PO SCH (13:52)
[2024-04-09] MEDS: MINERAL OIL 30 ML UDC PO SCH (13:53)
[2024-04-09 15:41] VITALS: BP_SYST 139; PULSE 80; RESP 16; TEMP 97.2; O2SAT 94
[2024-04-10 00:31] VITALS: BP_SYST 153; PULSE 78; RESP 18; TEMP 97.9
[2024-04-10 06:37] LABS: BASOPHILS # (AUTO) 0.1 K/uL (0.0-0.2); BASOPHILS % (AUTO) 0.4 % (0.0-2.0); EOSINOPHILS # (AUTO) 0.1 K/uL (0.0-0.4); EOSINOPHILS % (AUTO) 0.5 % (0.0-4.0); HEMATOCRIT 36.2 % (36-48); HEMOGLOBIN 12.4 g/dL (12.0-16.0); LYMPHOCYTES # (AUTO) 2.3 K/uL (1.0-5.5); LYMPHOCYTES % (AUTO) 13.4 % (20.5-51.5); MEAN CORPUSCULAR HEMOGLOBIN 30 pg (27-31); MEAN CORPUSCULAR HGB CONC 34 % (32-36); MEAN CORPUSCULAR VOLUME 88 fL (79.0-98.0); MONOCYTES # (AUTO) 1.4 K/uL (0.0-1.0); MONOCYTES % (AUTO) 8.4 % (1.7-9.3); NEUTROPHILS % (AUTO) 77.3 % (40.0-70.0); PLATELET COUNT (AUTO) 279 K/uL (130-430); RED BLOOD CELL COUNT(AUTO) 4.14 MIL/uL (4.2-6.2); RED CELL DISTRIBUTION WIDTH 14.5 % (9.0-15.0); WHITE BLOOD COUNT (AUTO) 16.8 K/uL (4.8-10.8)
[2024-04-10 06:41] LABS: ALANINE AMINOTRANSFERASE 17 U/L (12-78); ALBUMIN 1.8 g/dL (3.4-4.8); ANION GAP 9 (5-15); ASPARTATE AMINOTRANSFERASE 17 U/L (10-37); CALCIUM 8.2 mg/dL (8.4-11.0); CARBON DIOXIDE 29 mmol/L (23-29); CHLORIDE 100 mmol/L (98-107); CREATININE 0.61 mg/dL (0.55-1.30); GLUCOSE 104 mg/dL (74-106); POTASSIUM 3.5 mmol/L (3.5-5.1); SODIUM SERUM 138 mmol/L (136-145); TOTAL PROTEIN, SERUM 6.2 g/dL (6.4-8.3); UREA NITROGEN, BLOOD 9 mg/dL (8-21)
[2024-04-10 08:18] VITALS: BP_SYST 146; PULSE 73; RESP 20; TEMP 98.5
[2024-04-10] MEDS: CHOLECALCIFEROL (VITAMIN D3) 5,000 UNIT TABLET PO SCH (08:43)
[2024-04-10 09:00] VITALS: O2SAT 93
[2024-04-10 12:45] VITALS: BP_SYST 151; PULSE 71; RESP 18; TEMP 97.5; O2SAT 98
[2024-04-10] MEDS: POTASSIUM CHLORIDE 20 MEQ TABLET.ER PO ONE (13:56)
[2024-04-10] MEDS ORDERED: BISACODYL 10 MG/SUPPOSITORY RC PRN (14:30)
[2024-04-10 16:55] VITALS: BP_SYST 149; PULSE 77; RESP 18; TEMP 98; O2SAT 98
[2024-04-10 23:11] VITALS: BP_SYST 121; PULSE 83; RESP 18; TEMP 99.3; O2SAT 95
[2024-04-11 07:49] LABS: ALANINE AMINOTRANSFERASE 13 U/L (12-78); ALBUMIN 1.6 g/dL (3.4-4.8); ANION GAP 8 (5-15); ASPARTATE AMINOTRANSFERASE 13 U/L (10-37); CALCIUM 7.8 mg/dL (8.4-11.0); CARBON DIOXIDE 28 mmol/L (23-29); CHLORIDE 99 mmol/L (98-107); CREATININE 0.58 mg/dL (0.55-1.30); GLUCOSE 128 mg/dL (74-106); PHOSPHORUS 3.1 mg/dL (2.7-4.5); POTASSIUM 3.9 mmol/L (3.5-5.1); SODIUM SERUM 135 mmol/L (136-145); TOTAL BILIRUBIN 0.8 mg/dL (0.0-1.0); TOTAL PROTEIN, SERUM 5.6 g/dL (6.4-8.3); UREA NITROGEN, BLOOD 5 mg/dL (8-21)
[2024-04-11 08:00] VITALS: BP_SYST 160; PULSE 79; RESP 17; TEMP 98.6; O2SAT 93
[2024-04-11 08:17] LABS: BASOPHILS % (AUTO) 0.3 % (0.0-2.0); EOSINOPHILS # (AUTO) 0.1 K/uL (0.0-0.4); EOSINOPHILS % (AUTO) 0.9 % (0.0-4.0); HEMATOCRIT 33.8 % (36-48); HEMOGLOBIN 11.5 g/dL (12.0-16.0); LYMPHOCYTES # (AUTO) 2.4 K/uL (1.0-5.5); LYMPHOCYTES % (AUTO) 17.2 % (20.5-51.5); MEAN CORPUSCULAR HEMOGLOBIN 30 pg (27-31); MEAN CORPUSCULAR HGB CONC 34 % (32-36); MEAN CORPUSCULAR VOLUME 87 fL (79.0-98.0); MONOCYTES # (AUTO) 1.7 K/uL (0.0-1.0); MONOCYTES % (AUTO) 12.6 % (1.7-9.3); NEUTROPHILS # (AUTO) 9.5 K/uL (1.8-7.7); PLATELET COUNT (AUTO) 299 K/uL (130-430); RED BLOOD CELL COUNT(AUTO) 3.88 MIL/uL (4.2-6.2); RED CELL DISTRIBUTION WIDTH 14.3 % (9.0-15.0); WHITE BLOOD COUNT (AUTO) 13.8 K/uL (4.8-10.8)
[2024-04-11 08:45] VITALS: O2SAT 98
[2024-04-11] MEDS ORDERED: GASTROGRAFIN 120 ML ONE (11:04)
[2024-04-11 11:06] VITALS: BP_SYST 162; PULSE 79; RESP 15; TEMP 98.8; O2SAT 94
[2024-04-11 15:16] VITALS: BP_SYST 125; PULSE 72; RESP 16; TEMP 96.6; O2SAT 99
[2024-04-11] MEDS ORDERED: cloNIDine HCL 0.2 MG TABLET PO PRN (17:30)
[2024-04-11 20:03] VITALS: BP_SYST 144; PULSE 83; RESP 18; TEMP 99; O2SAT 95
[2024-04-12] VITALS: BP_SYST 141; PULSE 86; RESP 17; TEMP 98.8
[2024-04-12 08:00] VITALS: O2SAT 96
[2024-04-12 08:07] VITALS: BP_SYST 136; PULSE 81; RESP 16; TEMP 98.4; O2SAT 96
[2024-04-12 11:32] VITALS: BP_SYST 161; PULSE 66; RESP 16; TEMP 97.6; O2SAT 97
[2024-04-12 15:04] VITALS: BP_SYST 168; PULSE 68; RESP 16; TEMP 98.7; O2SAT 98
[2024-04-12 17:03] LABS: BASOPHILS % (AUTO) 0.3 % (0.0-2.0); EOSINOPHILS # (AUTO) 0.1 K/uL (0.0-0.4); EOSINOPHILS % (AUTO) 1.2 % (0.0-4.0); LYMPHOCYTES # (AUTO) 2.4 K/uL (1.0-5.5); LYMPHOCYTES % (AUTO) 19.5 % (20.5-51.5); MEAN CORPUSCULAR HEMOGLOBIN 29 pg (27-31); MEAN CORPUSCULAR HGB CONC 34 % (32-36); MEAN CORPUSCULAR VOLUME 86 fL (79.0-98.0); MONOCYTES # (AUTO) 1.4 K/uL (0.0-1.0); MONOCYTES % (AUTO) 11.2 % (1.7-9.3); NEUTROPHILS # (AUTO) 8.3 K/uL (1.8-7.7); NEUTROPHILS % (AUTO) 67.8 % (40.0-70.0); PLATELET COUNT (AUTO) 329 K/uL (130-430); RED BLOOD CELL COUNT(AUTO) 4.09 MIL/uL (4.2-6.2); WHITE BLOOD COUNT (AUTO) 12.2 K/uL (4.8-10.8)
[2024-04-12 17:09] LABS: ALANINE AMINOTRANSFERASE 10 U/L (12-78); ALBUMIN 1.6 g/dL (3.4-4.8); ANION GAP 7 (5-15); ASPARTATE AMINOTRANSFERASE 11 U/L (10-37); CALCIUM 7.7 mg/dL (8.4-11.0); CARBON DIOXIDE 29 mmol/L (23-29); CHLORIDE 98 mmol/L (98-107); CREATININE 0.67 mg/dL (0.55-1.30); GLUCOSE 186 mg/dL (74-106); SODIUM SERUM 134 mmol/L (136-145); TOTAL BILIRUBIN 0.3 mg/dL (0.0-1.0); TOTAL PROTEIN, SERUM 5.8 g/dL (6.4-8.3)
[2024-04-12 17:15] LABS: UREA NITROGEN, BLOOD 1 mg/dL (8-21)
[2024-04-12] MEDS: SIMETHICONE 80 MG TAB.CHEW PO ONE (18:17)
[2024-04-12 20:05] VITALS: BP_SYST 149; PULSE 71; RESP 19; TEMP 99; O2SAT 95
[2024-04-12] MEDS: LACTOBACILLUS RHAMNOSUS GG 1 CAP CAPSULE PO SCH (21:17)
[2024-04-12] MEDS: SIMETHICONE 80 MG TAB.CHEW PO PRN (21:18)
[2024-04-13 00:44] VITALS: BP_SYST 147; PULSE 72; RESP 18; TEMP 97.7; O2SAT 98
[2024-04-13 05:55] LABS: BASOPHILS % (AUTO) 0.4 % (0.0-2.0); EOSINOPHILS # (AUTO) 0.2 K/uL (0.0-0.4); EOSINOPHILS % (AUTO) 2.2 % (0.0-4.0); HEMATOCRIT 33.3 % (36-48); HEMOGLOBIN 11.3 g/dL (12.0-16.0); LYMPHOCYTES # (AUTO) 2.1 K/uL (1.0-5.5); LYMPHOCYTES % (AUTO) 19.2 % (20.5-51.5); MEAN CORPUSCULAR HEMOGLOBIN 29 pg (27-31); MEAN CORPUSCULAR HGB CONC 34 % (32-36); MEAN CORPUSCULAR VOLUME 87 fL (79.0-98.0); MONOCYTES # (AUTO) 1.3 K/uL (0.0-1.0); NEUTROPHILS # (AUTO) 7.4 K/uL (1.8-7.7); NEUTROPHILS % (AUTO) 66.2 % (40.0-70.0); PLATELET COUNT (AUTO) 334 K/uL (130-430); RED BLOOD CELL COUNT(AUTO) 3.85 MIL/uL (4.2-6.2); RED CELL DISTRIBUTION WIDTH 14.8 % (9.0-15.0); WHITE BLOOD COUNT (AUTO) 11.1 K/uL (4.8-10.8)
[2024-04-13 07:09] LABS: ANION GAP 6 (5-15); CALCIUM 7.1 mg/dL (8.4-11.0); CARBON DIOXIDE 27 mmol/L (23-29); CHLORIDE 99 mmol/L (98-107); CREATININE 0.45 mg/dL (0.55-1.30); GLUCOSE 140 mg/dL (74-106); PHOSPHORUS 3.6 mg/dL (2.7-4.5); SODIUM SERUM 132 mmol/L (136-145); UREA NITROGEN, BLOOD 1 mg/dL (8-21)
[2024-04-13 08:00] VITALS: BP_SYST 151; PULSE 79; RESP 15; TEMP 97.9; O2SAT 96
[2024-04-13 08:19] LABS: POTASSIUM 2.9 mmol/L (3.5-5.1)
[2024-04-13] MEDS ORDERED: POTASSIUM CHLORIDE 40 MEQ, LIDOCAINE JECT 2% PF 100 MG 50 MG in NS 250 ML IV ONE (08:45)
[2024-04-13] MEDS: MINERAL OIL 30 ML UDC PO SCH (09:00)
[2024-04-13] MEDS: MAGNESIUM SULFATE 50 ML IV ONE (09:15)
[2024-04-13] MEDS: MULTIVITS,CA,MINERALS/IRON/FA 1 TABLET GT SCH (10:07)
[2024-04-13 10:30] VITALS: O2SAT 97
[2024-04-13 11:11] VITALS: BP_SYST 163; PULSE 71; RESP 15; TEMP 97.6; O2SAT 96
[2024-04-13 12:02] LABS: INR 1.1 (0.8-1.2); PROTHROMBIN TIME 11.7 SECS (9.5-12.5)
[2024-04-13] MEDS: POTASSIUM CHLORIDE 20 MEQ TABLET.ER PO ONE (12:26)
[2024-04-13 15:17] VITALS: BP_SYST 148; PULSE 74; RESP 16; TEMP 97.3; O2SAT 98
[2024-04-13 20:15] VITALS: BP_SYST 155; PULSE 73; RESP 18; TEMP 98.8; O2SAT 93
[2024-04-14 00:05] VITALS: BP_SYST 142; PULSE 75; RESP 18; TEMP 98.2; O2SAT 98
[2024-04-14 05:27] LABS: BASOPHILS % (AUTO) 0.3 % (0.0-2.0); EOSINOPHILS # (AUTO) 0.2 K/uL (0.0-0.4); EOSINOPHILS % (AUTO) 1.6 % (0.0-4.0); HEMATOCRIT 32.7 % (36-48); LYMPHOCYTES # (AUTO) 2.1 K/uL (1.0-5.5); LYMPHOCYTES % (AUTO) 18.6 % (20.5-51.5); MEAN CORPUSCULAR HEMOGLOBIN 29 pg (27-31); MEAN CORPUSCULAR HGB CONC 34 % (32-36); MEAN CORPUSCULAR VOLUME 87 fL (79.0-98.0); MONOCYTES # (AUTO) 1.2 K/uL (0.0-1.0); MONOCYTES % (AUTO) 10.1 % (1.7-9.3); NEUTROPHILS % (AUTO) 69.4 % (40.0-70.0); PLATELET COUNT (AUTO) 363 K/uL (130-430); RED BLOOD CELL COUNT(AUTO) 3.78 MIL/uL (4.2-6.2); RED CELL DISTRIBUTION WIDTH 14.7 % (9.0-15.0); WHITE BLOOD COUNT (AUTO) 11.5 K/uL (4.8-10.8)
[2024-04-14 06:06] LABS: ALANINE AMINOTRANSFERASE 7 U/L (12-78); ALBUMIN 1.5 g/dL (3.4-4.8); ANION GAP 7 (5-15); ASPARTATE AMINOTRANSFERASE 5 U/L (10-37); CALCIUM 7.6 mg/dL (8.4-11.0); CARBON DIOXIDE 29 mmol/L (23-29); CHLORIDE 103 mmol/L (98-107); CREATININE 0.52 mg/dL (0.55-1.30); GLUCOSE 138 mg/dL (74-106); POTASSIUM 3.6 mmol/L (3.5-5.1); SODIUM SERUM 139 mmol/L (136-145); TOTAL BILIRUBIN 0.3 mg/dL (0.0-1.0); TOTAL PROTEIN, SERUM 5.3 g/dL (6.4-8.3)
[2024-04-14 07:40] LABS: UREA NITROGEN, BLOOD 1 mg/dL (8-21)
[2024-04-14 08:15] VITALS: O2SAT 98
[2024-04-14 11:10] VITALS: BP_SYST 156; PULSE 74; RESP 16; TEMP 100; O2SAT 98
[2024-04-14] MEDS ORDERED: CIPR500T5 PO (11:41)
[2024-04-14] MEDS ORDERED: METR-343 PO (11:41)
[2024-04-14] MEDS ORDERED: LACT1TAB14 PO (11:43)
== END 2024-04-14 14:20 | disposition left against medical advice (07) | DRG 871 ==
LOC: SED 02:19 → SMU 07:40
PROVIDERS: ADMIT Internal Medicine; ATTEND Internal Medicine
DX: A41.9 Sepsis, unspecified organism (principal); E43 Unspecified severe protein-calorie malnutrition; K56.7 Ileus, unspecified; N39.0 Urinary tract infection, site not specified; K56.600 Partial intestinal obstruction, unspecified as to cause; E87.6 Hypokalemia; I10 Essential (primary) hypertension; E11.9 Type 2 diabetes mellitus without complications; E03.9 Hypothyroidism, unspecified; E78.5 Hyperlipidemia, unspecified; B96.20 Unspecified Escherichia coli [E. coli] as the cause of diseases classified elsewhere; Z53.29 Procedure and treatment not carried out because of patient's decision for other reasons; Z88.0 Allergy status to penicillin; Z90.49 Acquired absence of other specified parts of digestive tract; Z85.528 Personal history of other malignant neoplasm of kidney; Z80.0 Family history of malignant neoplasm of digestive organs; Z87.891 Personal history of nicotine dependence; Z68.25 Body mass index [BMI] 25.0-25.9, adult
CPT/HCPCS: 36415; 71045; 74018; 74250; 80048; 80053; 81000; 81001; 81015; 82948; 83540; 83550; 83690; 83735; 84100; 84484; 85025; 85610; 85730; 87040; 87086; 87186; 93005; 97110-GP; 97116-GP; 97530-GP; 99285; C9113; J0696; J1650; J1815; J1885; J1956; J2270; J2405; J3480; J3490; J7050; J7060; Q9963; Q9967